=== PATIENT | female | born 1960 ===

== ENCOUNTER 2019-02-14 03:28 | Outpatient (CLI) | payer SELFPAY ==
[2019-02-14 09:27] LABS: CHOL/HDL RATIO 3.25 (0.00-4.99)
[2019-02-14 09:31] LABS: HEMOGLOBIN A1C 5.4 % (4.5-6.2)
== END 2019-02-14 23:59 | disposition home or self-care (01) ==
LOC: HW HEART 03:28
DX: Z13.6 Encounter for screening for cardiovascular disorders (principal)
CPT/HCPCS: 36415